=== PATIENT | male | born 1980 | race Caucasian/White ===

== ENCOUNTER 2019-03-31 19:43 | Emergency (ER) | payer MEDICAID ==
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
[2019-03-31] MEDS ORDERED: Ketorolac Tromethamine 60 MG/2 ML VIAL ONE ×2 (21:11→21:37)
== END 2019-03-31 22:00 | disposition home or self-care (01) ==
LOC: ERS 19:43
DX: M25.552 Pain in left hip (principal)
CPT/HCPCS: 96372; J1885

== ENCOUNTER 2025-01-21 22:53 | Emergency (ER) | payer BC ==
[2025-01-22 00:02] LABS: #Basophils 0.10 10x3/uL (0.0-0.2); #Eosinophils 0.39 10x3/uL (0.0-0.7); #Monocytes 0.88 10x3/uL (0.11-0.59); #Neutrophils 7.50 10x3/uL (1.40-6.50); %Basophils 0.9 % (0.0-1.0); %Eosinophils 3.6 % (0.0-10.0); %Lymphocytes 16.8 % (21.0-51.0); %Monocytes 8.2 % (0.0-10.0); %Neutrophils 70.1 % (42.0-75.0); Hematocrit 42.2 % (42.0-52.0); Hemoglobin 13.2 g/dL (14.0-18.0); Mean Corpuscular Hemoglobin 27.8 pg (27.0-31.0); Mean Corpuscular Volume 88.8 fL (78.0-98.0); Platelet Count 354 10x3/uL (130-400); Red Blood Cell (RBC) Count 4.75 mill/uL (4.70-6.10); White Blood Cell (WBC) Count 10.71 10x3/uL (4.8-10.8)
[2025-01-22 00:23] LABS: ALT (SGPT) 15 U/L (Less than 45); AST (SGOT) 22 U/L (11-34); Albumin 4.0 g/dL (3.1-4.5); Alkaline Phosphatase 60 U/L (40-110); Anion Gap 13 mmol/L (10-20); BUN (Urea Nitrogen) 12 mg/dL (8.9-20.6); Bilirubin, Total 0.2 mg/dL (0.3-1.2); Calc. Creatinine Clearance 0 mL/min (70-130); Calcium 9.7 mg/dL (7.8-10.44); Carbon Dioxide 24 mmol/L (22-29); Chloride 107 mmol/L (98-107); Globulin 3.5 g/dL (2.4-3.5); Glucose 104 mg/dL (70-105); Potassium 4.2 mmol/L (3.5-5.1); Sodium 140 mmol/L (136-145)
[2025-01-22] MEDS ORDERED: Ondansetron PF 4 MG/2 ML Vial ONE (00:36)
[2025-01-22] MEDS ORDERED: Cefepime 2 GM VIAL ONE (00:36)
[2025-01-22] MEDS ORDERED: Ketorolac Tromethamine 30 MG (1 mL) VIAL ONE (02:35)
[2025-01-22] MEDS ORDERED: Vancomycin (BATCH) 2 GM Premix IVPB SCH (03:00)
[2025-01-22] MEDS ORDERED: Clindamycin 150 MG CAP ONE ×2 (03:59→04:00)
== END 2025-01-22 05:50 | disposition home or self-care (01) ==
LOC: ERS 22:53
DX: L03.115 Cellulitis of right lower limb (principal)
CPT/HCPCS: 36415; 80053; 83605; 83880; 85025; 87040; 87070; 87077; 87205; 96365; 96366; 96367; 96375; 96376; J0692; J1885; J2405; J3010; J3373; J7030